=== PATIENT | male | born 1995 | race Caucasian/White ===

== ENCOUNTER 2017-10-22 20:21 | Emergency (ER) | payer BC ==
[~2017-10-22] VITALS: Ht 180.3 cm; Wt 63.6 kg
[2017-10-22 20:28] VITALS: TEMP 98.2
[2017-10-22] MEDS ORDERED: TRUVADA 100 MG1 EACH PO (20:37)
[2017-10-22] MEDS ORDERED: NORCO 325 MG-51 TAB PO (21:48)
[2017-10-22 21:56] VITALS: BP 121/78; PULSE 81
== END 2017-10-22 21:56 | disposition home or self-care (01) ==
LOC: COL.ER 20:21
DX: J93.9 Pneumothorax, unspecified (principal); R07.89 Other chest pain
CPT/HCPCS: J1170; J2405

== ENCOUNTER → 2017-10-23 | Outpatient (CLI) | payer BC ==
[~2017-10-23] MED LIST: NORCO 325 MG-51 TAB PO; TRUVADA 100 MG1 EACH PO
== END ==
LOC: COL.RAD 08:26
DX: J93.9 Pneumothorax, unspecified (principal)